=== PATIENT | male | born 1985 | race Caucasian/White ===

== ENCOUNTER 2017-05-13 20:49 | Emergency (ER) | payer OTHER ==
[~2017-05-13] VITALS: Ht 172.7 cm; Wt 73.9 kg
[~2017-05-13 20:49] MED LIST: AMOX1TAB12 PO; PEPCID40 MG PO; PHENERGAN25 MG PO
[2017-05-14] MEDS ORDERED: PROTONIX40 MG PO (01:42)
[2017-05-14] MEDS ORDERED: ZANTAC300 MG PO (01:42)
== END 2017-05-14 01:40 | disposition home or self-care (01) ==
LOC: ER 20:49
DX: K29.00 Acute gastritis without bleeding (principal); R10.84 Generalized abdominal pain

== ENCOUNTER 2019-03-27 11:14 | Emergency (ER) | payer OTHER ==
[~2019-03-27] VITALS: Ht 172.7 cm; Wt 70.3 kg
[~2019-03-27 11:14] MED LIST changes: +PROTONIX40 MG PO; +ZANTAC300 MG PO
[2019-03-27] MEDS ORDERED: DOLOGEN CAPLET1 EACH PO (13:42)
[2019-03-27] MEDS ORDERED: ZITHROMAX500 MG PO (13:42)
[2019-03-27] MEDS ORDERED: TUSNEL LIQUID178 ML PO (13:42)
== END 2019-03-27 13:51 | disposition home or self-care (01) ==
LOC: ER 11:14
DX: B34.9 Viral infection, unspecified (principal)

== ENCOUNTER 2019-06-06 22:02 | Emergency (ER) | payer OTHER ==
[~2019-06-06] VITALS: Ht 172.7 cm; Wt 69.4 kg
[~2019-06-06 22:02] MED LIST changes: +DOLOGEN CAPLET1 EACH PO; +TUSNEL LIQUID178 ML PO; +ZITHROMAX500 MG PO
[2019-06-06] MEDS ORDERED: ZITHROMAX500 MG PO (23:24)
== END 2019-06-06 23:48 | disposition home or self-care (01) ==
LOC: ER 22:02
DX: A54.09 Other gonococcal infection of lower genitourinary tract (principal)

== ENCOUNTER 2020-05-02 13:40 | Emergency (ER) | payer OTHER ==
[~2020-05-02] VITALS: Ht 172.7 cm; Wt 68.0 kg
== END 2020-05-02 19:03 | disposition home or self-care (01) ==
LOC: ER 13:40
DX: L23.89 Allergic contact dermatitis due to other agents (principal)

== ENCOUNTER 2020-09-10 08:02 | Emergency (ER) | payer OTHER ==
[~2020-09-10] VITALS: Ht 172.7 cm; Wt 70.3 kg
[2020-09-10] MEDS ORDERED: SKELAXIN800 MG PO (12:21)
[2020-09-10] MEDS ORDERED: DICLOFENAC POTA50 MG PO (12:21)
[2020-09-10] MEDS ORDERED: VOLTAREN100 GM TOP (12:21)
[2020-09-10] MEDS ORDERED: ULTRAM50 MG PO (12:21)
== END 2020-09-10 13:12 | disposition home or self-care (01) ==
LOC: ER 08:02
DX: M62.838 Other muscle spasm (principal); M54.2 Cervicalgia; M54.12 Radiculopathy, cervical region

== ENCOUNTER 2020-09-12 10:39 | Emergency (ER) | payer OTHER ==
[~2020-09-12] VITALS: Ht 172.7 cm; Wt 70.3 kg
[~2020-09-12 10:39] MED LIST changes: +DICLOFENAC POTA50 MG PO; +SKELAXIN800 MG PO; +ULTRAM50 MG PO; +VOLTAREN100 GM TOP
== END 2020-09-12 17:17 | disposition home or self-care (01) ==
LOC: ER 10:39
DX: M62.838 Other muscle spasm (principal); M54.2 Cervicalgia

== ENCOUNTER 2021-04-03 23:53 | Emergency (ER) | payer OTHER ==
[~2021-04-03] VITALS: Ht 172.7 cm; Wt 71.2 kg
== END 2021-04-04 02:59 | disposition home or self-care (01) ==
LOC: ER 23:53
DX: K29.60 Other gastritis without bleeding (principal)

== ENCOUNTER 2022-07-04 20:20 | Emergency (ER) | payer OTHER ==
[~2022-07-04] VITALS: Ht 172.7 cm; Wt 71.2 kg
[2022-07-04] MEDS ORDERED: ONDANSETRON ODT8 MG PO (23:53)
[2022-07-04] MEDS ORDERED: LEVSIN/SL0.125 MG SL (23:53)
[2022-07-04] MEDS ORDERED: PEPCID AC20 MG PO (23:53)
== END 2022-07-05 00:16 | disposition home or self-care (01) ==
LOC: ER 20:20
DX: K52.89 Other specified noninfective gastroenteritis and colitis (principal); R11.2 Nausea with vomiting, unspecified

== ENCOUNTER 2023-01-17 21:31 | Emergency (ER) | payer OTHER ==
[~2023-01-17] VITALS: Ht 172.7 cm; Wt 71.2 kg
[~2023-01-17 21:31] MED LIST changes: +LEVSIN/SL0.125 MG SL; +ONDANSETRON ODT8 MG PO; +PEPCID AC20 MG PO
[2023-01-17 23:28] LABS: HEMATOCRIT 44.8 % (39.0-48.0); HEMOGLOBIN 14.6 g/dL (13-16.00); MEAN CELL VOLUME 86.2 fL (80.0-100.00); MEAN CORPUSCULAR HEMOGLOBIN 28.2 pg (27.00-32.0); MEAN CORPUSCULAR HGB CONC 32.7 g/dl (32.0-36.0); PLATELET COUNT 216 K/uL (150-450); RED CELL DISTRIBUTION WIDTH 13.7 % (11.5-14.5)
[2023-01-17 23:35] LABS: CALCIUM 9.2 mg/dL (8.5-10.1); CREATININE SERUM 0.85 mg/dL (0.70-1.30); GFR 102.57; POTASSIUM 3.53 mEq/L (3.5-5.1)
[2023-01-18 03:12] LABS: PH,URINE 6.5 (5.0-8.0); URINE APPEARANCE Clear; URINE BILIRRUBIN Negative (NEGATIVE); URINE BLOOD Negative; URINE COLOR Yellow; URINE GLUCOSE Negative (NEGATIVE); URINE LEUKOCYTE Negative; URINE NITRATE Negative; URINE PROTEIN 30 (NEGATIVE); URINE UROBILINOGEN 0.2 E.U./dl
[2023-01-18 03:16] LABS: URINE RBC 3.4 uL (0.0-20.8)
[2023-01-18 03:35] LABS: URINE BACTERIA 1.2 uL (0.0-1933); URINE EPITHELIAL CELLS 0.1 uL (0.0-38.8)
[2023-01-18] MEDS ORDERED: PROTONIX40 MG PO (04:50)
[2023-01-18] MEDS ORDERED: ONDANSETRON ODT4 MG PO (04:50)
[2023-01-18] MEDS ORDERED: PEPCID40 MG PO (04:50)
== END 2023-01-18 04:52 ==
LOC: ER 21:31
PROVIDERS: Emergency Medicine
DX: R11.2 Nausea with vomiting, unspecified (principal)

== ENCOUNTER 2023-03-09 22:31 | Emergency (ER) | payer OTHER ==
[~2023-03-09] VITALS: Ht 175.3 cm; Wt 68.9 kg
[~2023-03-09 22:31] MED LIST changes: +ONDANSETRON ODT4 MG PO
[2023-03-09 23:51] LABS: HEMATOCRIT 45.6 % (39.0-48.0); HEMOGLOBIN 15.2 g/dL (13-16.00); MEAN CELL VOLUME 85.7 fL (80.0-100.00); MEAN CORPUSCULAR HEMOGLOBIN 28.6 pg (27.00-32.0); MEAN CORPUSCULAR HGB CONC 33.4 g/dl (32.0-36.0); PLATELET COUNT 180 K/uL (150-450); RED BLOOD COUNT 5.32 M/uL (4.00-6.00); RED CELL DISTRIBUTION WIDTH 14.4 % (11.5-14.5)
[2023-03-10 00:04] LABS: ALBUMIN 3.7 gm/dL (3.4-5.0); BILIRUBIN TOTAL 0.46 mg/dL (0.3-1.2); CALCIUM 8.6 mg/dL (8.5-10.1); GFR 85.03; GLOBULINA 3.6 G/DL (2.4-3.5); POTASSIUM 4.58 mEq/L (3.5-5.1); TOTAL PROTEIN 7.3 gm/dL (6.4-8.2)
== END 2023-03-10 03:42 | disposition home or self-care (01) ==
LOC: ER 22:31
PROVIDERS: General Practice
DX: T78.1XXA Other adverse food reactions, not elsewhere classified, initial encounter (principal); X58.XXXA Exposure to other specified factors, initial encounter